=== PATIENT | male | born 1945 | race Caucasian/White ===

== ENCOUNTER → 2017-05-14 | Outpatient (CLI) | payer OTHER ==
[~2017-05-14] MED LIST: 24 HOUR ALLER15.8 ML BOTH NARES; ACETAMINOPHEN-1 EAC3 PO; ALEVE220 MG PO; AMITRIPTYLINE H10 MG PO; AMLODIPINE BESYL5 MG PO; ANIMAL CHEWS1 EACH PO; ASPIRIN81 M2 PO; COUMADIN2 MG PO; COUMADIN5 MG PO; COZAAR50 MG PO; DEPAKOTE500 MG PO; DICLOFENAC SODI75 MG PO; DIOVAN HCT 31 TABLET PO; FENTANYL1 EAC4 TD; FLOVENT DISKUS1 DIS2 IH; FUROSEMIDE40 MG PO; KLOR-CON 1010 ME1 PO; METHOCARBAMOL750 MG PO; NITROGLYCERIN0.4 MG PO; OMEPRAZOLE40 M1 PO; OXYCODONE HCL10 MG PO; TRAMADOL HCL50 MG PO; ZOLPIDEM TARTRA10 MG PO
[2017-05-14 10:59] LABS: HEMATOCRIT 43.1 % (38.0-50.0); MCH 30.8 PG (29.0-34.0); MCHC 32.7 G/DL (30.0-36.0); MCV 94.1 FL (86-99); PLATELET COUNT 126 K/uL (156-360); RBC DIS.WIDTH-SD 48.5 % (39-53); RED BLOOD COUNT 4.58 M/uL (4.00-5.50); WHITE BLOOD COUNT 6.3 K/uL (4.1-10.2)
[2017-05-14 11:25] LABS: INTER. NORMALIZED RATIO 1.2; PROTHROMBIN TIME 13.5 SEC (10.2-12.9)
[2017-05-14 11:28] LABS: PTT 35.6 SEC (25-37)
== END | disposition home or self-care (01) ==
LOC: OPR 04-30 10:00 → EDSTATUS 04-30 10:00 → OPR 05-06 09:00
PROVIDERS: Internal Medicine Hematology & Oncology
DX: R22.2 Localized swelling, mass and lump, trunk (principal); Z79.82 Long term (current) use of aspirin; Z79.01 Long term (current) use of anticoagulants; Z88.0 Allergy status to penicillin; Z85.820 Personal history of malignant melanoma of skin
CPT/HCPCS: 77012; 85027; 85610; 85730; 88305; J3010